=== PATIENT | female | born 1965 | race Caucasian/White ===

== ENCOUNTER 2022-08-24 18:57 | Emergency (ER) | payer OTHER ==
[~2022-08-24] VITALS: Ht 175.3 cm; Wt 74.1 kg
[2022-08-24 19:02] VITALS: TEMP 98.2
[2022-08-24] MEDS ORDERED: AMOXICILLIN 8751 TAB PO (19:21)
[2022-08-24 19:34] VITALS: BP 156/97; PULSE 88
== END 2022-08-24 19:40 | disposition home or self-care (01) ==
LOC: COL.ER 18:57
DX: S61.252A Open bite of right middle finger without damage to nail, initial encounter (principal); Z23 Encounter for immunization; Z28.310 Unvaccinated for COVID-19; W55.01XA Bitten by cat, initial encounter